=== PATIENT | male | born 1960 ===

== ENCOUNTER 2023-07-23 14:14 | Outpatient (REF) | payer OTHER, SELFPAY ==
--- NOTE | ~2023-07-23 | US_ITS ---
EXAMINATION: US ABDOMEN LIMITED CLINICAL INFORMATION: Left quadrant pain-history of previous hernia with repair, question recurrence. COMPARISON: None available. TECHNIQUE: Real-time imaging of the left lower quadrant. FINDINGS: Targeted ultrasound images were obtained by the flux plant operator of the area of concern as indicated by the patient in the left lower quadrant and demonstrated no discrete hernia, mass or fluid collection. Limited visualization due to bowel gas. Radiologist was not in attendance. Images were later provided for interpretation. US/US abdomen limited IMPRESSION: No discrete hernia, mass or fluid collection identified in the area of concern as indicated by the patient in the left lower quadrant. CT scan of the abdomen and pelvis could be considered for further evaluation.
--- NOTE | ~2023-07-23 | US_ITS ---
EXAMINATION: US VENOUS ULTRASOUND WITH DOPPLER LOWER EXTREMITY, RIGHT CLINICAL INFORMATION: History of DVT at [facility] more than 6 months ago. Prior images and reports are not available at this time. COMPARISON: None available. TECHNIQUE: Ultrasound of the deep veins is performed from the hip to the calf with compression sonography and color and pulse Doppler assessment. Spectral analysis with color-flow imaging is performed. Radiologist was not in attendance. Images were later provided for interpretation. I discussed these findings in detail at the time of interpretation on July 27, 2023 at 12:30 PM with the hollock maker who had performed the ultrasound exam. FINDINGS: The right common femoral vein appears patent to the level of the right proximal femoral vein. The proximal femoral vein appears patent until the level of bifurcation of the proximal vein into anterior and posterior portions, an anatomic variant. Thrombus, which appears chronic, is identified throughout the posterior branch of the proximal femoral vein. The anterior branch of the proximal femoral vein appears patent. The anterior and posterior branches of the proximal femoral vein reunite in the distal thigh at the level of a single distal femoral vein, which appears patent. The popliteal vein appears patent. Imaged segments of posterior tibial and peroneal veins in the calf appear patent. The patent venous structures demonstrate good Doppler flow and compressibility. US/US venous duplex LE RT IMPRESSION: Thrombus identified throughout the posterior branch of the proximal femoral vein as detailed above. 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 This study was presented today July 27, 2023 for interpretation. [facility] staff will provide results to referring provider at this time.
== END 2023-07-23 14:15 | disposition home or self-care (01) ==
LOC: HO.US 14:14
PROVIDERS: PCP Family Medicine; Visit Provider Family Medicine
DX: R10.32 Left lower quadrant pain (principal); I82.431 Acute embolism and thrombosis of right popliteal vein; Z98.890 Other specified postprocedural states; Z87.19 Personal history of other diseases of the digestive system
CPT/HCPCS: 76705; 93971

== ENCOUNTER 2023-08-17 12:38 | Outpatient (REF) | payer OTHER, SELFPAY | END 2023-08-17 12:39 | disposition home or self-care (01) | LOC: HO.XRAY 12:38 | PROVIDERS: Absent Provider Internal Medicine; PCP Family Medicine; Referring Provider Family Medicine; Visit Provider Surgery | DX: K42.9 Umbilical hernia without obstruction or gangrene (principal); R10.32 Left lower quadrant pain | CPT/HCPCS: 99202 ==

== ENCOUNTER 2023-08-17 12:38 | Outpatient (AMB) | payer OTHER, SELFPAY ==
--- NOTE | 2023-08-17 13:04 | MHC.OFFVIS ---
Vital Signs 08/17/23 13:12 Height 5 ft 10 in Weight 197 lb BMI 28.3 BP 158/90 H Blood Pressure Location Rt brachial Position Sitting Pulse 80 Intake Visit Reasons: LLQ pain. Hx of LIH Intake Note: Patient referred by PCP Dr. Witt for LLQ pain. Hx of hernia repair 5-6yrs ago. Patient c/o: LLQ constant pain but taking otc tylenol or ibuprofen as needed. MRI scheduled on 08-27-23. Gravity Manager Required: No Accompanied by: Self / Same As Patient Allergies No Known Allergies Allergy (Verified 08/17/23 13:08) HPI Comments Details: Patient presents 1. Evaluation of umbilical hernia 2. Because of left flank/lower abdominal pain. 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 He had an open left inguinal hernia repair reapproximate years ago. He has had complaints of nonspecific left flank/upper abdominal pain. He has had otherwise tolerating his diet and having regular bowel habits. He has not noticed any bulge or swelling in the area. 2. Patient has an umbilical hernia which he has had for many years time as well. Is occasionally symptomatic Patient had ultrasound of the left groin which was negative for any hernia. Chart was reviewed and patient evaluated REPLACED BY [facility] Medical History (Updated 08/17/23 @ 13:12 by KAILYN Krueger) HTN (hypertension) Hemorrhage following tonsillectomy Surgical History (Updated 08/17/23 @ 13:23 by Cory Salmeron MD) History of hernia repair Social History (Updated 08/17/23 @ 13:12 by KAILYN Krueger) Patient Tobacco Use Status: Never used Tobacco Physical Exam Vital Signs: Last Vital Signs Pulse 80 08/17/23 13:12 BP 158/90 H 08/17/23 13:12 BMI result Body Mass Index 28.3 Chest Other: Chest breath sounds bilaterally, HS 1 in 2 GI Other: Patient was examined both supine and standing with Valsalva. Abdomen is soft minimally corpulent, benign. Proximally 2 cm reducible umbilical hernia. Right groin negative. Genitalia within normal limits. Left groin negative. Hernia scar well healed. No evidence of any recurrence Assessment & Plan Assessment & Plan (1) Umbilical hernia: Code(s): K42.9 - Umbilical hernia without obstruction or gangrene Category: Surgical (2) Inguinodynia, left: Code(s): R10.32 - Left lower quadrant pain Category: Surgical Plan The present time, there was no evidence of any recurrence of his left inguinal hernia. His symptoms are more likely related to muscle strain or pull secondary to his lifting heavy objects at his place of employment. Patient would like to have his umbilical hernia repaired with mesh. Risks, benefits, alternatives of procedure were reviewed with him and included but not limited to bleeding, infection, recurrence, numbness, pain, scarring the patient wishes to proceed. All questions answered. Arrangements were made for this. Coding Level of Care Code New Pt Level 5 (70894) Diagnoses Umbilical hernia K42.9 Inguinodynia, left R10.32
[2023-08-17 13:12] VITALS: BP 158/90; PULSE 80; BMI 28.3
== END 2023-08-17 13:39 | disposition home or self-care (01) ==
PROVIDERS: PCP Family Medicine; Referring Provider Family Medicine; Visit Provider Surgery
DX: K42.9 Umbilical hernia without obstruction or gangrene (principal); R10.32 Left lower quadrant pain
CPT/HCPCS: 99204